=== PATIENT | male | born 2000 | race Caucasian/White ===

== ENCOUNTER 2022-06-20 19:43 | Emergency (ER) | payer SELFPAY ==
[~2022-06-20] VITALS: Ht 177.8 cm; Wt 123.0 kg
[2022-06-20] MEDS ORDERED: KETOROLAC 60MG/2ML VIAL IM ONE (22:45)
[2022-06-20] MEDS ORDERED: NAPR-681 MT (23:33)
[2022-06-20 23:58] VITALS: BP 112/78
== END 2022-06-21 | disposition home or self-care (01) ==
LOC: ER 19:43
DX: M25.572 Pain in left ankle and joints of left foot (principal)
CPT/HCPCS: 29515; 73610; 96372; 99283; J1885